=== PATIENT | female | born 1960 | race Caucasian/White ===

== ENCOUNTER 2021-12-14 22:31 | Emergency (ER) | payer OTHER, BC | END 2021-12-15 00:01 | disposition home or self-care (01) | LOC: BURERS 22:31 → EDBD 22:31 → BURERS 12-15 00:01 | DX: S52.612A Displaced fracture of left ulna styloid process, initial encounter for closed fracture (principal); S52.502A Unspecified fracture of the lower end of left radius, initial encounter for closed fracture; W01.0XXA Fall on same level from slipping, tripping and stumbling without subsequent striking against object, initial encounter | CPT/HCPCS: 29125 ==